=== PATIENT | female | born 1980 | race Caucasian/White ===

== ENCOUNTER → 2020-06-23 | Outpatient (CLI) | payer OTHER ==
--- NOTE | 2020-06-23 12:45 | RAD ---
EXAM: NM PET/CT SKULL BASE TO MID THIGH EXAM DATE: 06/23/2020 INDICATION: Left rib lesion. RADIOPHARMACEUTICAL: 16.31 mCi of F-18 Fluorodeoxyglucose (FDG) I.V. via the right hand. TECHNIQUE: Patient weight: 150 pounds. Following at least four-hour fasting, the patient's blood gluc ose was 94 mg/dl. Approximately 1 hour and 15 minutes after administration of FDG, overlapping emiss ion scanning was performed from the orbital meatal line through the pelvis. A low-dose CT was perfor med for attenuation correction purposes and anatomic localization. Fused images of PET and CT were re viewed. Any standardized uptake values (SUV) reported are maximum values within a volume region of i nterest, expressed in gm/ml. COMPARISON: Left rib series of 06/15/2020. FINDINGS: PET: In the head and neck, no abnormal FDG uptake is seen. In the chest, FDG uptake in the left ninth rib along the posterior axillary line to max SUV of 2.09 c orresponds with callus formation around a nondisplaced fracture (image 202 series 3). Uptake in the d istal thoracic esophagus which is under distended and has a borderline thickened wall shows a max SUV of 3.88. Mediastinum shows a background max SUV of 2.40. In the abdomen and pelvis, mild uptake in the endometrial canal to max of 3.09 is seen. There is asym metric left-sided left perineal soft tissue fullness showing a max SUV of 3.24. Background FDG activi ty in the liver shows a max SUV of 2.33. CT: In the head and neck, no mass or adenopathy is apparent. In the chest, lungs show mild centrilobular emphysema. No suspicious lung nodules or masses. No pleur al effusion. No mediastinal or hilar mass or adenopathy on noncontrast CT. Cardiovascular structures are unremarkable. Distal thoracic esophagus shows minimal wall thickening in the setting of under dis tention. Abdomen and pelvis show aortic calcifications without aneurysmal dilation. Moderate stool throughout the large bowel. No findings of bowel obstruction, perforation or acute inflammation. Bilateral tubal ligation clips are present. The uterus is retroflexed. No mass or adenopathy. IMPRESSION: The mixed lytic and sclerotic lesion in the left ninth rib is most consistent with a healing rib frac ture and shows FDG uptake consistent with same. There are no findings suspicious for a metabolically active malignancy in the included field of view Electronically signed by: Nika Billy MD (06/23/2020 12:43 PM) [id number]
== END ==
LOC: PETSC 07:44
PROVIDERS: ATTEND Nurse Practitioner Adult Health
DX: C79.51 Secondary malignant neoplasm of bone (principal)
CPT/HCPCS: 78815; A9552